=== PATIENT | female | born 1950 | race Caucasian/White ===

== ENCOUNTER 2024-03-14 13:34 | Inpatient (IN) ==
[2024-03-14] MEDS: Lactated Ringers 1000 ml BAG 1,000 ML IV ONE (14:08)
[2024-03-14 14:16] LABS: ABS Lymphocytes 0.6 10^3/uL (1.0-4.8); ABS Monocytes 0.6 10^3/uL (0.0-0.9); ABS Neutrophils 9.3 10^3/uL (1.5-7.6); ABS Nucleated RBC 0.01 10^3/ul; Hematocrit 40.4 % (35-45); Hemoglobin 14.1 g/dL (11.5-14.3); Lymphocyte % 5.5 %; Mean Corpuscular Hemoglobin 30.1 pg (27-33); Mean Corpuscular Hgb Conc 34.9 g/dL (31-36); Mean Corpuscular Volume 86.3 fL (80-97); Mean Platelet Volume 6.7 fL (7.5-11.2); Platelet Count 359 10^3/uL (150-450); Red Blood Count 4.68 10^6/uL (3.63-4.92); Red Cell Distribution Width 14.6 % (12-17); White Blood Count 10.5 10^3/uL (3.8-11.8)
[2024-03-14 14:39] LABS: Albumin 4.2 g/dL (3.5-5.7); Albumin/Globulin Ratio 1.6 (1-3); Calcium 9.6 mg/dL (8.6-10.3); Creatinine, Serum 0.96 mg/dL (0.51-0.95); Globulin 2.6 g/dL (2-4); Potassium 4.3 mmol/L (3.5-5.0); Total Bilirubin 0.5 mg/dL (0.2-1.0); Total Protein 6.8 g/dL (6.4-8.9); eGFR CKD-EPI 62.9 (>60)
[2024-03-14 15:35] LABS: Venous Bicarbonate HCO3 26.3 mmol/L (24-28)
[2024-03-14] MEDS: Enoxaparin 40 MG/0.4 ML SYR SUBCUT SCH (17:24)
[2024-03-14 18:05] LABS: High Sensitivity Troponin 1 Hr 2066 pg/mL (<15)
[2024-03-15] MEDS: Ondansetron 4 mg VIAL 2 MG/ML 2 ml VIAL IV PRN (03:21)
[2024-03-15 04:26] LABS: High Sensitivity Troponin 3 Hr 8925 pg/mL (<15)
[2024-03-15] MEDS: DULoxetine DR 20 mg CAP PO SCH (08:02)
[2024-03-15] MEDS: Pravastatin 20 mg TAB (NF) PO SCH (08:02)
[2024-03-15] MEDS ORDERED: Omeprazole 20 mg CAP (NF) PO SCH (09:00)
[2024-03-15] MEDS: Multivitamins/Minera Areds(NF) CAP PO SCH (09:37)
[2024-03-15] MEDS: Multivitamins/Minerals TAB PO SCH (11:47)
[2024-03-15 14:26] LABS: High Sensitivity Troponin 3 Hr 10292 pg/mL (<15)
[2024-03-15] MEDS: Sulfur Hexaflouride MICROSPHR 25 MG VIAL IV PRN (14:54)
[2024-03-16 11:30] LABS: High Sensitivity Troponin 1 Hr 2419 pg/mL (<15)
[2024-03-16 12:59] LABS: Ferritin 15.4 ng/mL (11-307)
[2024-03-17 06:26] LABS: Hematocrit 32.6 % (35-45); Hemoglobin 11.1 g/dL (11.5-14.3); Mean Corpuscular Hemoglobin 29.6 pg (27-33); Mean Corpuscular Hgb Conc 34.1 g/dL (31-36); Mean Corpuscular Volume 86.8 fL (80-97); Mean Platelet Volume 7.3 fL (7.5-11.2); Platelet Count 257 10^3/uL (150-450); Red Blood Count 3.76 10^6/uL (3.63-4.92); Red Cell Distribution Width 14.8 % (12-17); White Blood Count 4.8 10^3/uL (3.8-11.8)
[2024-03-17 06:47] LABS: Calcium 7.7 mg/dL (8.6-10.3); Creatinine, Serum 0.64 mg/dL (0.51-0.95); Potassium 3.6 mmol/L (3.5-5.0); eGFR CKD-EPI 93.8 (>60)
[2024-03-17 11:49] LABS: PCO2 Arterial 29 mmHg (35-45); PO2 Arterial 100 mmHg (80-100)
[2024-03-17] MEDS ORDERED: fentaNYL 100 mcg/2 ml 50 MCG/ML VIAL ONE (12:31)
[2024-03-17] MEDS ORDERED: Propofol 10 MG/ML 20 ML BTL ONE (12:31)
[2024-03-17] MEDS ORDERED: Midazolam 2 mg/2 ml VIAL 1 mg/ml 2 ml VIAL (2 mg) ONE (12:31)
[2024-03-17] MEDS ORDERED: Ondansetron 4 mg VIAL 2 MG/ML 2 ml VIAL ONE (12:31)
[2024-03-17] MEDS ORDERED: Lidocaine 2% PF 5 ML VIAL ONE (12:31)
[2024-03-17] MEDS ORDERED: Ondansetron 4 mg VIAL 2 MG/ML 2 ml VIAL IV PRN (13:44)
[2024-03-17] MEDS ORDERED: Naloxone 0.4 mg VIAL 0.4 mg/ml 1 ml VIAL IV PRN (13:44)
[2024-03-17 15:30] LABS: High Sensitivity Troponin 1 Hr 1031 pg/mL (<15)
[2024-03-17] MEDS: Lactated Ringers 1000 ml BAG 1,000 ML IV SCH (15:37)
[2024-03-18] MEDS ORDERED: Regadenoson 0.4 MG/5 ML SYRINGE ONE (11:53)
[2024-03-18] MEDS ORDERED: Aminophylline 25 MG/ML VIAL ONE (11:53)
[2024-03-20] MEDS ORDERED: Senna TAB 8.6 mg TAB PO PRN (08:11)
[2024-03-20] MEDS ORDERED: Magnesium Hydroxide LIQ 30 ML UDC PO PRN (08:11)
[2024-03-20] MEDS ORDERED: Polyethylene Glycol 3350 17 GM PACKET PO PRN (08:11)
[2024-03-20] MEDS: Magnesium Hydroxide LIQ 30 ML UDC PO SCH (09:12)
[2024-03-21 10:16] VITALS: BP 154/82
[2024-03-21] MEDS: Sulfur Hexaflouride MICROSPHR 25 MG VIAL IV PRN (10:43)
== END 2024-03-21 13:50 | disposition home or self-care (01) | DRG 917 ==
LOC: EDHOLD 13:34 → ED 13:34 → SUATTDRO 16:41 → MEDTELE 21:34 → SUATTDRO 03-15 12:00
PROVIDERS: ADMIT Student in an Organized Health Care Education/Training Program; ATTEND Student in an Organized Health Care Education/Training Program
PROC: O.GIEGD (2024-03-17 13:35)